=== PATIENT | female | born 1995 | race African-American/Black ===

== ENCOUNTER 2019-10-09 18:13 | Emergency (ER) | payer MEDICAID ==
[~2019-10-09] VITALS: Ht 180.3 cm; Wt 90.0 kg
[2019-10-09 20:37] VITALS: BP 118/66
== END 2019-10-09 20:30 | disposition left against medical advice (07) ==
LOC: ER 18:13
DX: Z53.21 Procedure and treatment not carried out due to patient leaving prior to being seen by health care provider (principal)